=== PATIENT | female | born 1995 | race Caucasian/White ===

== ENCOUNTER → 2019-03-25 | Outpatient (CLI) | payer OTHER ==
--- NOTE | 2019-03-25 15:45 | NEURO WORKBENCH EEG REPORT ---
EEG Report Patient: Alda Gutierrez ID: [id number] Referring Doctor: Jaiden Rasheed Date: 03/25/2019 Reason for study: Evaluate Epileptiform activity Medications: None History: This is a 23 year old female with a history of syncope. This EEG was requested for evaluation of possible epileptiform activity. EEG Interpretation: This EEG was recorded during wakefulness, stage I, and briefly state II sleep. The awake EEG is characterized by a well organized background with a well developed and reactive posterior dominant rhythm (PDR) of approximately 11-12 Hz. The remainder of the background consisted of low amplitude frontally predominant beta activity. The EEG is symmetric in amplitudes and frequencies. Photic stimulation resulted in photic driving, and there was no epileptiform activity elicited with photic stimulation. Hyperventilation resulted in the appearance of diffuse 6-7 Hz theta and 1-3 Hz delta activity (normal for age) and no epileptiform activity was elicited. Stage I sleep was achieved and characterized by slow rolling eye movements, slowing of the background rhythm, and emergence of more diffuse theta activity. Stage II sleep was briefly achieved and symmetric sleep spindles were noted. There were no epileptiform abnormalities (no sharp waves and no spikes). There were no seizures. The EKG showed a regular rhythm with typically 60-90 beats per minute. EEG Impression: This EEG is within normal limits for age. There was no epileptiform activity or seizures. A single normal routine EEG does not rule out the possibility of epilepsy. If there is high clinical suspicion for epilepsy, then additional EEG evaluation should be considered with a sleep-deprived EEG or more prolonged EEG monitoring. INTERPRETING NEUROLOGIST: Kamlesh Arias MD Board certified by the [place] in Neurology, Clinical Neurophysiology, and Sleep Medicine [facility]
== END ==
LOC: NEURO 08:12
PROVIDERS: ATTEND Specialist
DX: R56.9 Unspecified convulsions (principal); R55 Syncope and collapse
CPT/HCPCS: 95819